=== PATIENT | male | born 1965 | race Caucasian/White ===

== ENCOUNTER 2017-07-01 07:41 | Emergency (ER) | payer OTHER ==
[~2017-07-01] VITALS: Ht 175.3 cm; Wt 97.5 kg
[~2017-07-01 07:41] MED LIST: ALPR.5 PO; AMLO10 PO; AMLO5 PO; AMOCLA875 PO; Augmentin 875-1 EACH PO; CEPH500 PO; CIPR500; CYCL10 PO; DOXY100 PO; DOXY100T53 PO; ERYT.5TO BOTHEYES; FLUT.05NI; Flagyl500 MG PO; HYDACE5 PO; HYDCHL12.5 PO; HYDCHL25 PO; IBUP600 PO; IBUP800; IBUP800 PO; Kristalose20 GM PO; LEVFLO500 PO; LISHYD1012 PO; LISHYD2012 PO; LISHYD2025 PO; LISI20 PO; LISI5 PO; LORA.5 PO; LORA1 PO; LORA2 PO; LOSA25 PO; NAPR500 PO; OXYACE5T PO; OXYACE7.5T PO; RXHYDACE PO; RXLORA1 PO; RXOXYACE PO; SULTRIDS PO; TRAM50 PO
[2017-07-01] MEDS ORDERED: Mobic15 MG PO (08:15)
== END 2017-07-01 08:37 | disposition home or self-care (01) ==
LOC: ER 07:41
DX: S43.101A Unspecified dislocation of right acromioclavicular joint, initial encounter (principal); I10 Essential (primary) hypertension; Z86.73 Personal history of transient ischemic attack (TIA), and cerebral infarction without residual deficits; X58.XXXA Exposure to other specified factors, initial encounter; Z88.8 Allergy status to other drugs, medicaments and biological substances; Z79.899 Other long term (current) drug therapy
CPT/HCPCS: 99282

== ENCOUNTER 2020-10-24 22:31 | Emergency (ER) | payer OTHER ==
[~2020-10-24] VITALS: Ht 175.3 cm; Wt 98.0 kg
[~2020-10-24 22:31] MED LIST changes: +Mobic15 MG PO
[2020-10-24] MEDS ORDERED: TRAM50 PO (23:05)
== END 2020-10-24 23:37 | disposition home or self-care (01) ==
LOC: ER 22:31
DX: M79.672 Pain in left foot (principal); I10 Essential (primary) hypertension; Z88.8 Allergy status to other drugs, medicaments and biological substances; Z79.899 Other long term (current) drug therapy; Z86.73 Personal history of transient ischemic attack (TIA), and cerebral infarction without residual deficits
CPT/HCPCS: 99283

== ENCOUNTER 2021-05-15 10:10 | Emergency (ER) | payer OTHER ==
[~2021-05-15] VITALS: Ht 172.7 cm; Wt 102.1 kg
[2021-05-15] MEDS ORDERED: PREGABALIN75 MG PO (10:19)
[2021-05-15] MEDS ORDERED: Ventolin/Prove6.7 GM INH (10:20)
== END 2021-05-15 12:35 | disposition home or self-care (01) ==
LOC: ER 10:10
DX: M54.50 Low back pain, unspecified (principal); G89.29 Other chronic pain; I10 Essential (primary) hypertension; Z79.899 Other long term (current) drug therapy
CPT/HCPCS: 72100; 99284-25